=== PATIENT | female | born 1990 | race African-American/Black ===

== ENCOUNTER 2022-01-27 07:11 | Emergency (ER) | payer MEDICAID ==
[~2022-01-27] VITALS: Ht 162.6 cm; Wt 99.8 kg
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
[2022-01-27] MEDS ORDERED: IBUPROFEN 600 MG TABLET ONE (08:14)
--- NOTE | 2022-01-27 08:17 | NUR ---
PT TAKEN TO RADIOLOGY VIA WHEELCHAIR
--- NOTE | 2022-01-27 08:23 | NUR ---
PT RETURNED FROM RADIOLOGY
[2022-01-27] MEDS ORDERED: IBUPROFEN 600 MG TABLET PO ONE (08:30)
--- NOTE | 2022-01-27 11:11 | NUR ---
FOLLOWED UP RESULT OF CXR W/ RADIOLOGY
--- NOTE | 2022-01-27 11:39 | NUR ---
DR RAND SPEAKING W/ PATIENT
--- NOTE | 2022-01-27 11:43 | NUR ---
Patient discharged to home in stable condition. Written and verbal after care instructions given. Patient verbalizes understanding of instruction.
[2022-01-27 11:48] VITALS: BP 130/76
== END 2022-01-27 11:49 | disposition home or self-care (01) ==
LOC: ER 07:13
DX: M79.645 Pain in left finger(s) (principal)
CPT/HCPCS: 71045-TC; 72100-TC; 73130-TC